=== PATIENT | female | born 1955 ===

== ENCOUNTER 2019-03-22 05:20 | Day surgery (SDC) | payer OTHER ==
[~2019-03-22 05:20] MED LIST: LOSARTAN-HCTZ1 EAC2 PO; ZANTAC300 MG PO
== END 2019-03-22 12:25 | disposition home or self-care (01) ==
LOC: CIR.AMB 05:20
DX: M65.842 Other synovitis and tenosynovitis, left hand (principal)

== ENCOUNTER 2019-07-05 05:20 | Day surgery (SDC) | payer OTHER | END 2019-07-05 13:10 | disposition home or self-care (01) | LOC: CIR.AMB 05:20 | DX: M65.841 Other synovitis and tenosynovitis, right hand (principal) ==